=== PATIENT | male | born 1990 | race Caucasian/White ===

== ENCOUNTER 2019-03-01 12:28 | Emergency (ER) | payer SELFPAY ==
[~2019-03-01] VITALS: Ht 185.4 cm; Wt 97.5 kg
[2019-03-01 13:15] VITALS: BP 126/88
--- NOTE | 2019-03-01 13:16 | Emergency Room Report ---
History of Present Illness General Chief Complaint: General Complaint Source: Patient Present Illness HPI 28-year-old male presents to the emergency department complaining of subjective fevers, chills, body aches, difficulty sleeping and swelling to the left cheek x6 days. Patient was seen by primary care [address] scan which did identify an enlarged parotid gland did not have any mentioning of abscess. Patient has been on amoxicillin for 2 days however his symptoms have rapidly progressed and he states that the swelling in his left cheek has almost tripled in size since onset. Patient states he took Advil prior to arrival which was given to him at his primary care provider's office before being sent here to the emergency department. The patient's primary care provider has concern for sepsis due to lymphadenopathy. Patient denies history of immunocompromise he denies recent travel or ill contacts. Patient states he is unknown what his vaccination history is as he received childhood vaccinations and [place] and is not sure whether or not he was vaccinated for mumps. He states that he [place] and does come in contact with people regularly. Denies toothaches or recent dental procedures. Allergies: Coded Allergies: No Known Allergies (Unverified , 03/01/19) Patient History Past Medical History: see triage record Past Surgical History: none Pertinent Family History: none Reviewed Nursing Documentation: PMH: Agreed; PSxH: Agreed Nursing Documentation-PMH Past Medical History: No Stated History Review of Systems All Other Systems: negative except mentioned in HPI Physical Exam Vital Signs Date Time Temp Pulse Resp B/P (MAP) Pulse Ox O2 Delivery O2 Flow Rate FiO2 03/01/19 12:40 98.2 103 18 126/88 (101) 94 Room Air Medical Decision Making PA Attestation Dr. uSmner is my supervising Physician whom patient management has been discussed with. Diagnostic Impression: Primary Impression: Acute parotitis Additional Impression: Cellulitis of cheek ER Course 28-year-old male presents to the emergency department complaining of subjective fevers, chills, body aches, difficulty sleeping and swelling to the left cheek x6 days. Patient was seen by primary care [address] scan which did identify an enlarged parotid gland did not have any mentioning of abscess. Patient has been on amoxicillin for 2 days however his symptoms have rapidly progressed and he states that the swelling in his left cheek has almost tripled in size since onset. Patient states he took Advil prior to arrival which was given to him at his primary care provider's office before being sent here to the emergency department. The patient's primary care provider has concern for sepsis due to lymphadenopathy. Patient denies history of immunocompromise he denies recent travel or ill contacts. Patient states he is unknown what his vaccination history is as he received childhood vaccinations and [place] and is not sure whether or not he was vaccinated for mumps. He states that he works at an [place] and does come in contact with people regularly. Denies toothaches or recent dental procedures. Ddx considered but are not limited to sialoadenitis, sialolithiasis, mumps, parotitis, abscess, neoplasm/mass, adenopathy. Vital signs: are WNL, pt. is afebrile H&PE are most consistent with parotitis, due to rapid progression and extension down into the neck further imaging is required. ORDERS: -CBC with differential: WNL no leukocytosis or shift. -BMP: WNL -Lactic Acid: WNL - Blood Cultures: Pending -CT neck with contrast: " Marked enlargement of the superficial lobe of the left parotid gland, consistent with parotitis, nonspecific as regards to etiology. There is some adjacent fat stranding in the soft tissue with edema and presumably cellulitis no findings to suggest abscess calculus or ductal obstruction. " Per official radiology report- Please see report for specific details. ED INTERVENTIONS: - Toradol IV - 1 liter NS IV - Levaquin 750mg PO This case was d/w his PCP and collaborative decision to start pt. on Levaquin rather than clindamycin. DISCHARGE: At this time pt. is stable for d/c to home. Will provide printed patient care instructions, and any necessary prescriptions. Care plan and follow up instructions have been discussed with the patient prior to discharge. Labs Test 03/01/19 13:00 White Blood Count 8.5 K/UL (4.8-10.8) Red Blood Count 5.45 M/UL (4.70-6.10) Hemoglobin 16.0 G/DL (14.2-18.0) Hematocrit 47.0 % (42.0-52.0) Mean Corpuscular Volume 86 FL (80-99) Mean Corpuscular Hemoglobin 29.4 PG (27.0-31.0) Mean Corpuscular Hemoglobin Concent 34.0 G/DL (32.0-36.0) Red Cell Distribution Width 12.0 % (11.6-14.8) Platelet Count 271 K/UL (150-450) Mean Platelet Volume 6.8 FL (6.5-10.1) Neutrophils (%) (Auto) 58.7 % (45.0-75.0) Lymphocytes (%) (Auto) 23.7 % (20.0-45.0) Monocytes (%) (Auto) 15.7 % (1.0-10.0) Eosinophils (%) (Auto) 0.0 % (0.0-3.0) Basophils (%) (Auto) 1.9 % (0.0-2.0) Sodium Level 139 MMOL/L (136-145) Potassium Level 3.8 MMOL/L (3.5-5.1) Chloride Level 100 MMOL/L (98-107) Carbon Dioxide Level 28 MMOL/L (21-32) Anion Gap 11 mmol/L (5-15) Blood Urea Nitrogen 13 mg/dL (7-18) Creatinine 1.2 MG/DL (0.55-1.30) Estimat Glomerular Filtration Rate > 60 mL/min (>60) Glucose Level 96 MG/DL (74-106) Lactic Acid Level 1.00 mmol/L (0.4-2.0) Calcium Level 9.5 MG/DL (8.5-10.1) Total Bilirubin 0.4 MG/DL (0.2-1.0) Aspartate Amino Transf (AST/SGOT) 22 U/L (15-37) Alanine Aminotransferase (ALT/SGPT) 42 U/L (12-78) Alkaline Phosphatase 49 U/L (46-116) Total Creatine Kinase 70 U/L (26-308) Total Protein 8.6 G/DL (6.4-8.2) Albumin 4.4 G/DL (3.4-5.0) Globulin 4.2 g/dL Albumin/Globulin Ratio 1.0 (1.0-2.7) EKG Diagnostic Results EP Interpretation: Dr. Sumner Rate: normal - 94 bpm Rhythm: NSR ST Segments: no acute changes ASA given to the pt in ED: No PA Scribe Text This Interpretation was scribed by AVANI Bell. CT/MRI/US Diagnostic Results CT/MRI/US Diagnostic Results : Imaging Test Ordered: CT Neck with contrast Impression " Marked enlargement of the superficial lobe of the left parotid gland, consistent with parotitis, nonspecific as regards to etiology. There is some adjacent fat stranding in the soft tissue with edema and presumably cellulitis no findings to suggest abscess calculus or ductal obstruction. " Per official radiology report- Please see report for specific details. Last Vital Signs Date Time Temp Pulse Resp B/P (MAP) Pulse Ox O2 Delivery O2 Flow Rate FiO2 03/01/19 12:40 98.2 103 18 126/88 (101) 94 Room Air Disposition: HOME, SELF-CARE Condition: Stable Scripts Levofloxacin* (LEVAQUIN*) 500 Mg Tablet 500 MG ORAL DAILY for 7 Days, #7 TAB Prov: Kaylynn Bell 03/01/19 Ibuprofen* (MOTRIN*) 600 Mg Tablet 600 MG ORAL THREE TIMES A DAY, #30 TAB 0 Refills Prov: Kaylynn Bell 03/01/19 Patient Instructions: Cellulitis, [id number], Parotitis Additional Instructions: Take medications as directed. Follow up with a Primary Care Provider in 3-5 days, even if your symptoms have resolved. Return sooner to ED if new symptoms occur, or current symptoms become worse. - Please note that this Emergency Department Report was dictated using [employer] operations manager technology software, occasionally this can lead to erroneous entry secondary to interpretation by the dictation equipment. Kaylynn Bell Mar 01, 2019 13:15
--- NOTE | 2019-03-01 13:22 | NUR ---
ED Nurse Note: pt walked in due to swelling on the left lower side of the face satrted 3 days ago, pt denies trauma, pt stated a pain of 3/10 when touched. pt stated he went to an urgent care unit and was adviced to go to the ed when the symptoms worses. seen by juan luis devine, with orders amde and caqrried out. iv g 20 started on pt left hand. will continue to monitor
[2019-03-01] MEDS ORDERED: Isovue-300 100ml vial INJ PRN (14:00)
[2019-03-01 14:04] LABS: BASOPHILS % (AUTO) 1.9 % (0.0-2.0); LYMPHOCYTES % (AUTO) 23.7 % (20.0-45.0); MEAN CORPUSCULAR VOLUME 86 FL (80-99); MONOCYTES % (AUTO) 15.7 % (1.0-10.0); NEUTROPHILS % (AUTO) 58.7 % (45.0-75.0); PLATELET COUNT 271 K/UL (150-450); RED BLOOD COUNT 5.45 M/UL (4.70-6.10); WHITE BLOOD COUNT 8.5 K/UL (4.8-10.8)
[2019-03-01 14:14] LABS: ANION GAP 11 mmol/L (5-15); BLOOD UREA NITROGEN 13 mg/dL (7-18); CALCIUM 9.5 MG/DL (8.5-10.1); CARBON DIOXIDE 28 MMOL/L (21-32); CHLORIDE 100 MMOL/L (98-107); CREATININE 1.2 MG/DL (0.55-1.30); POTASSIUM 3.8 MMOL/L (3.5-5.1); SODIUM 139 MMOL/L (136-145)
[2019-03-01 14:19] LABS: ALANINE AMINOTRANSFERASE 42 U/L (12-78); ALBUMIN 4.4 G/DL (3.4-5.0); ALKALINE PHOSPHATASE 49 U/L (46-116); ASPARTATE AMINO TRANSFERASE 22 U/L (15-37); BILIRUBIN,TOTAL 0.4 MG/DL (0.2-1.0); CREATINE KINASE 70 U/L (26-308)
--- NOTE | 2019-03-01 15:21 | Diagnostic Imaging Report ---
Indication: Femurs, chills, body aches, left cheek swelling Technique: IV administration nonionic contrast. Spiral acquisitions obtained through the neck Multiplanar reconstructions were generated. Total dose length product 743.79 mGycm. CTDIvol(s) 18.96 mGy. Radiation dose was minimized using automated exposure control Comparison: none Findings: There is marked enlargement of the superficial lobe of the left parotid gland. This also demonstrates increased attenuation presumably indicative of contrast enhancement. No definite intraductal calculi or salivary ductal dilatation demonstrated. A prominent node is seen at the inferior border of the left parotid gland, measures 16 mm in diameter. There is stranding of the fat in the left submental region extending into the lateral upper neck. There is also some stranding of the fat and musculature superficial to the parotid gland. The right parotid gland is unremarkable. The bilateral submandibular glands are unremarkable. There is slight asymmetric prominence to the left jugulodigastric node, which measures 2.5 cm in length. Other prominent but not frankly enlarged nodes are demonstrated on the left. No circumscribed fluid collections to suggest abscess demonstrated. There is mild prominence of the tonsillar pillars bilaterally, resulting in mild narrowing of the posterior nasopharynx the adenoids are unremarkable. The oropharynx and hypopharynx are unremarkable. The larynx is unremarkable. The trachea is unremarkable. The upper mediastinum is unremarkable. The thyroid is unremarkable.. Impression: Marked enlargement of the superficial lobe of the left parotid gland, consistent with parotitis, nonspecific as regards etiology. There is some adjacent surrounding soft tissue edema, presumably cellulitis, as well. No findings to suggest abscess. No evidence of calculus or ductal obstruction. Left cervical regional lymphadenopathy, presumably reactive secondary to the above The CT scanner at [facility] is accredited by the [employer] and the scans are performed using protocols designed to limit radiation exposure to as low as reasonably achievable to attain images of sufficient resolution adequate for diagnostic evaluation.
--- NOTE | 2019-03-01 16:07 | Diagnostic Imaging Report ---
Indication: Chest pain Technique: One view of the chest Comparison: none Findings: Inspiration is suboptimal. Some atelectasis or scarring is seen at the left lung base. The heart is borderline enlarged. The lungs and pleural spaces are otherwise clear. Impression: Hypoventilatory exam Borderline cardiomegaly Left basilar atelectasis or scarring
[2019-03-01 16:52] VITALS: BP 126/82
[2019-03-01] MEDS ORDERED: Levofloxacin 750mg tab ORAL ONE (17:30)
[2019-03-01] MEDS ORDERED: Ketorolac 30mg Inj IV ONE (17:30)
[2019-03-01] MEDS ORDERED: LEVAQUIN500 MG ORAL (17:34)
[2019-03-01] MEDS ORDERED: IBUPROFEN600 MG ORAL (17:34)
[2019-03-01 18:00] VITALS: BP 126/82
--- NOTE | 2019-03-01 18:00 | NUR ---
ED Nurse Note: meds well tolerate. Pt cleared by health care Provider for discharge. DC instructions/prescription was given and explained to pt and verbalized understanding of teachings. All medical deviecs such as ID band removed. Pt is AAO x4, ambulatory and left with all personal belongings.
--- NOTE | 2019-03-03 19:33 | Cardiology Report ---
APPROVED REPORT EKG Measurement Heart [id number] Normal sinus rhythm Nonspecific T wave abnormality Abnormal ECG
== END 2019-03-01 18:00 | disposition home or self-care (01) ==
LOC: EMR 14:38
DX: K11.21 Acute sialoadenitis (principal); L03.211 Cellulitis of face
CPT/HCPCS: 36415; 70491; 71045; 80053; 82550; 83605; 85025; 87040; 93005; 96361; 96374; 99284; J1885; Q9967